=== PATIENT | male | born 1975 | race African-American/Black ===

== ENCOUNTER 2024-07-28 08:55 | Outpatient (CLI) | payer OTHER, SELFPAY ==
--- NOTE | 2024-07-31 10:43 | P.NEURO_ITS ---
Neurology EEG Report General Information Date of Study: 07/28/24 TEST Eeg DIAGNOSIS seizures CONDITION OF RECORDING awake, drowsy and asleep. EEG NUMBER [id number] CLINICAL HISTORY patient reports 2 years ago he woke up and had trouble speaking and walking and has progressively gotten worse. Two days ago he lost consciousness and his son reported he was having a seizures. EEG DESCRIPTION Background rhythm consists of low to medium voltage 8 to 10 hertz per 2nd alpha seen posteriorly admixed with low-voltage 15 to 18 hertz per 2nd beta activity and with fair bridgett posterior gradient.Low to medium voltage 5 to 7 hertz per 2nd theta activity seen admixed with low-voltage 15 to 18 hertz per 2nd beta during drowsiness. Bilateral symmetrical sleep activity seen during sleep with 5 to 7 hertz per 2nd theta activity evolving into symmetrical sleep spindles. Multiple movement artifacts are noted throughout the tracing along with the multiple eye movement artifacts bifrontally. Photic stimulation produced poor drive. Hyperventilation not done. Non paroxysmal,nonfocal, and nonlateralizing. IMPRESSION Probably normal record but considering the movements artifacts clinical frieda elation recommended as this tracing is unable to rule out the possibility of seizures.
== END 2024-07-28 08:56 | disposition home or self-care (01) ==
LOC: ANHNEURO 08:59
PROVIDERS: Visit Provider Emergency Medicine
DX: R56.9 Unspecified convulsions (principal)
CPT/HCPCS: 95816